=== PATIENT | male | born 1975 | race Caucasian/White ===

== ENCOUNTER 2017-05-08 00:27 | Emergency (ER) | payer OTHER ==
[~2017-05-08] VITALS: Ht 182.9 cm; Wt 102.2 kg
[~2017-05-08 00:27] MED LIST: PERCOCET 5/31 TABLET PO; SILVADENE20 GM TP
[2017-05-08 03:22] VITALS: BP 158/98
== END 2017-05-08 03:23 | disposition home or self-care (01) ==
LOC: EME 00:27
PROC: 2W3SX1Z Immobilization of Right Foot using Splint (ICD-10-PCS; principal; 2017-05-08)
DX: S92.901A Unspecified fracture of right foot, initial encounter for closed fracture (principal); W17.4XXA Fall from dock, initial encounter; Y92.59 Other trade areas as the place of occurrence of the external cause; Y99.0 Civilian activity done for income or pay
CPT/HCPCS: 73630; 99281; 99283

== ENCOUNTER 2017-09-24 07:26 | Emergency (ER) | payer OTHER ==
[~2017-09-24] VITALS: Ht 182.9 cm; Wt 112.4 kg
[2017-09-24] MEDS ORDERED: NAPROSYN500 MG PO (07:58)
[2017-09-24] MEDS ORDERED: NORCO 5/3251 TABLET PO (07:58)
[2017-09-24 09:09] VITALS: BP 148/99
== END 2017-09-24 09:09 | disposition home or self-care (01) ==
LOC: EME 07:26
DX: S43.492A Other sprain of left shoulder joint, initial encounter (principal); X50.9XXA Other and unspecified overexertion or strenuous movements or postures, initial encounter; Y99.0 Civilian activity done for income or pay
CPT/HCPCS: 73030; 99281; 99284